=== PATIENT | female | born 2000 | race Hispanic/Latino ===

== ENCOUNTER 2023-08-24 12:45 | Emergency (ER) | payer SELFPAY | END 2023-08-24 14:13 | disposition home or self-care (01) | LOC: ERS 12:45 | DX: L03.115 Cellulitis of right lower limb (principal); X99.9XXA Assault by unspecified sharp object, initial encounter; Y92.511 Restaurant or cafe as the place of occurrence of the external cause | CPT/HCPCS: 99283 ==